=== PATIENT | female | born 1980 | race Caucasian/White ===

== ENCOUNTER 2016-10-14 07:30 | Inpatient (IN) | payer BC ==
[~2016-10-14] VITALS: Ht 170.2 cm; Wt 78.0 kg
[2016-10-14] VITALS (10 sets, daily range): BP systolic 103–146; RESP 18; TEMP 97.8–98.3; Ht 170.2 cm; Wt 78.0 kg
[2016-10-14] MEDS ORDERED: LIDOCAINE 2% 5 ML IV ONE (07:50)
[2016-10-14] MEDS ORDERED: LIDOCAINE 1% 30 ML PF INFILTRATE ONE (09:00)
[2016-10-14] MEDS ORDERED: OXYTOCIN 15 UNITS/250 ML NS 15 UNITS in PART FILL PIGGYBACK 1 EA IV SCH (09:00)
[2016-10-14] MEDS ORDERED: FAMOTIDINE 20 MG INJ IV PRN (09:00)
[2016-10-14] MEDS ORDERED: TERBUTALINE 1 MG/ML VIAL SUBQ PRN (09:00)
[2016-10-14] MEDS ORDERED: LIDOCAINE 1% BUFFERED 1 ML SYR INTRADERM PRN (09:00)
[2016-10-14] MEDS ORDERED: LACT RINGERS 1,000 ML IV SCH (09:00)
[2016-10-14] MEDS ORDERED: ONDANSETRON 4 MG VIAL IV PRN (09:00)
[2016-10-14] MEDS ORDERED: CEFAZOLIN (LD/OB) 100 ML IV PRN (09:00)
[2016-10-14] MEDS ORDERED: METOCLOPRAMIDE 10 MG/2 ML VIAL IV PUSH PRN (09:00)
[2016-10-14] MEDS ORDERED: ACETAMINOPHEN 325 MG TAB PO PRN (09:00)
[2016-10-14] MEDS ORDERED: OXYTOCIN 15 UNITS/250 ML NS 250 ML IV SCH (09:00)
[2016-10-14] MEDS ORDERED: MORPHINE 5 MG/1 ML VIAL IV PRN (09:00)
[2016-10-14] MEDS ORDERED: ALU/MAG/SIM 30 ML UDC PO PRN (09:00)
[2016-10-14] MEDS ORDERED: PROMETHAZINE 25 MG/ML VIAL IV PRN (09:00)
[2016-10-14] MEDS ORDERED: FAMOTIDINE 20 MG TAB PO PRN (09:00)
[2016-10-14] MEDS ORDERED: OXYTOCIN 15 UNITS/250 ML NS 500 ML IV ONE (09:33)
[2016-10-14] MEDS ORDERED: FENTANYL 100 MCG/2 ML AMP ONE (12:12)
[2016-10-14] MEDS ORDERED: ROPIV/FENT 0.2%-2MCG/ML 100 ML EPIDURAL ONE (12:12)
[2016-10-14] MEDS ORDERED: FENTANYL 100 MCG/2 ML AMP EPIDURAL ONE (12:30)
[2016-10-14] MEDS ORDERED: SODIUM CHLORIDE 0.9% 500 ML IV PRN (12:30)
[2016-10-14] MEDS ORDERED: LACT RINGERS 500 ML IV PRN (12:30)
[2016-10-14] MEDS ORDERED: LACT RINGERS 500 ML IV ONE (12:30)
[2016-10-14] MEDS ORDERED: ROPIV/FENT 0.2%-2MCG/ML 100 ML EPIDURAL SCH (12:30)
[2016-10-14] MEDS: MISOPROSTOL 200 MCG TAB PO SCH ×2 (14:10→17:23)
[2016-10-14] MEDS ORDERED: MISOPROSTOL 100 MCG TAB ONE (14:16)
[2016-10-14] MEDS ORDERED: MEASLES,MUMPS,RUBELLA VAC SUBQ.VACC ONE (14:20)
[2016-10-14] MEDS ORDERED: DERMOPLAST SPRAY TOPICAL PRN (14:20)
[2016-10-14] MEDS ORDERED: TDaP 0.5 ML VIAL IM.VACC ONE (14:20)
[2016-10-14] MEDS ORDERED: MAG HYDROX 30 ML UDC PO PRN (14:20)
[2016-10-14] MEDS ORDERED: ZOLPIDEM 5 MG TAB PO PRN (14:20)
[2016-10-14] MEDS ORDERED: OXYTOCIN 15 UNITS/250 ML NS 250 ML IV ONE (14:20)
[2016-10-14] MEDS ORDERED: ASTRINGENT MED PADS 40'S TOPICAL PRN (14:20)
[2016-10-14] MEDS: Ibuprofen 600 MG TAB PO SCH ×2 (17:24→23:59)
[2016-10-14] MEDS ORDERED: **ONLY ANESTEHSIA MAY ORDER OPIATES WHILE ON EPIDURAL XX SCH (20:00)
[2016-10-15] VITALS (9 sets, daily range): BP systolic 100–120; RESP 16–20; TEMP 97.3–98.1
[2016-10-15] MEDS: Ibuprofen 600 MG TAB PO SCH ×4 (05:38→23:59)
[2016-10-15] MEDS: DOCUSATE SOD 100 MG CAP PO SCH (09:00)
[2016-10-16 05:25] VITALS: BP_SYST 105; RESP 16; TEMP 98
[2016-10-16] MEDS: Ibuprofen 600 MG TAB PO SCH ×2 (06:46→11:30)
[2016-10-16] MEDS: DOCUSATE SOD 100 MG CAP PO SCH (09:00)
== END 2016-10-16 14:15 | disposition home or self-care (01) | DRG 775 ==
LOC: LD 08:54 → OB 16:22
PROVIDERS: ADMIT Obstetrics & Gynecology Reproductive Endocrinology; ATTEND Obstetrics & Gynecology Reproductive Endocrinology
PROC: 3E033VJ Introduction of Other Hormone into Peripheral Vein, Percutaneous Approach (ICD-10-PCS; principal; 2016-10-14)
PROC: 10E0XZZ Delivery of Products of Conception, External Approach (ICD-10-PCS; 2016-10-14)
PROC: 0HQ9XZZ Repair Perineum Skin, External Approach (ICD-10-PCS; 2016-10-14)
DX: O36.5930 Maternal care for other known or suspected poor fetal growth, third trimester, not applicable or unspecified (principal); O70.0 First degree perineal laceration during delivery; Z3A.39 39 weeks gestation of pregnancy; Z37.0 Single live birth
CPT/HCPCS: 85025